=== PATIENT | female | born 1995 | race Caucasian/White ===

== ENCOUNTER 2019-06-01 09:47 | Day surgery (SDC) | payer BC ==
[~2019-06-01] VITALS: Ht 154.9 cm; Wt 104.5 kg
[2019-06-01] VITALS (8 sets, daily range): BP systolic 115–132; BP diastolic 59–74; PULSE 59–80; TEMP 97.5–98.2
--- NOTE | 2019-06-01 15:10 | NUR ---
Returns to room 5 per cart from PACU accompanied by Taina NELSON and is awake and alert. IV fluids infusing and site is free of redness. Siderails up x2 and call light in reach. Patient is taking sips of water. Noted bloody drainage on the linda wrap dressing over the left breast area and drainage marked. Will continue to monitor. Family in room and patient allowed to rest.
--- NOTE | 2019-06-01 15:25 | NUR ---
Resting when not disturbed. Slight increase in bloody drainage over the left breast linda wrap dressing.
--- NOTE | 2019-06-01 15:30 | NUR ---
Office called and Dr. Winn informed of bloody drainage noted on dressing. Order received to reinforce with ABD and apply linda wrap. Patient is sipping on water. Family in room.
--- NOTE | 2019-06-01 15:45 | NUR ---
Dressing reinforced with ABD and linda wrap as ordered. Patient is sipping on Sprite and eating applesauce.
--- NOTE | 2019-06-01 16:00 | NUR ---
Eating applesauce and sipping on Sprite. Family at bedside.
--- NOTE | 2019-06-01 16:15 | NUR ---
IV to INT and assisted up to the bathroom. Voids and returns to room. Dressing remains dry and Dr. Winn notified. Patient maybe discharged to home and will follow up in the office on 06/02/2019 at 0900 as scheduled preoperatively.
--- NOTE | 2019-06-01 16:30 | NUR ---
Complains of nausea when attempting to dress self and Zofran 4mg IV given. Patient resting on cart and will continue to monitor. No emesis.
--- NOTE | 2019-06-01 16:45 | NUR ---
States that she is feeling better and wants to go home. IV discontinued and site is free of redness. Given dismissal instructions and signed.
--- NOTE | 2019-06-01 16:55 | NUR ---
Patient dismissed to home per private vehicle driven by family and taken to the front door per wheelchair with instructions in hand. Provided script for [place]
== END 2019-06-01 16:55 | disposition home or self-care (01) ==
LOC: SDCO 09:47
DX: N62 Hypertrophy of breast (principal); N64.89 Other specified disorders of breast; Z91.040 Latex allergy status; Z90.710 Acquired absence of both cervix and uterus; Z87.891 Personal history of nicotine dependence
CPT/HCPCS: J0171; J0690; J1100; J1170; J2250; J2550; J2704; J2710; J2795; J3010; J7040; J7120

== ENCOUNTER 2019-06-01 19:47 | Observation (INO) | payer BC ==
[~2019-06-01] VITALS: Ht 154.9 cm; Wt 105.0 kg
[2019-06-01 21:08] LABS: HEMATOCRIT 38.2 % (37.0-47.0); HEMOGLOBIN 13.1 g/dl (12.5-16.0); MEAN CELL VOLUME 83 fl (80.0-100.0); MEAN CORPUSCULAR HEMOGLOBIN 29 pg (27.0-31.0); MEAN CORPUSCULAR HGB CONC 34 g/dl (33.0-37.0); MEAN PLATELET VOLUME 11.2 fl (7.4-10.4); PLATELET COUNT 147 K/mm3 (130-400); RED BLOOD COUNT 4.58 M/mm3 (4.10-5.30); REDCELL DISTRIBUTION WIDTH-CV 12.2 % (11.5-14.5)
[2019-06-01 21:11] LABS: INR 1.1 (0.8-3.0); PROTHROMBIN TIME 12.3 SECONDS (9.7-12.8)
[2019-06-01 21:18] LABS: ALBUMIN 3.6 gm/dL (3.5-5.0); BILIRUBIN,TOTAL 0.4 mg/dL (0.0-1.0); CALCIUM 8.6 mg/dL (8.4-10.2); CREATININE, serum 0.69 (0.52-1.25); POTASSIUM 4.6 mmol/L (3.4-5.0); TOTAL PROTEIN 6.1 gm/dL (6.4-8.2)
[2019-06-01 21:30] LABS: BAND 3 % (0-10); LYMPHOCYTE 4 % (20.0-51.0); NEUTROPHILS 93 % (42.0-75.2); PLATELET ESTIMATE NORMAL (NORMAL)
[2019-06-02] VITALS (9 sets, daily range): BP systolic 116–149; BP diastolic 52–72; PULSE 64–92; TEMP 98–98.5
--- NOTE | 2019-06-02 01:10 | NUR ---
Received from PACU via bed. Oriented to room/policy. Assessment complete. VS stable. Dressing to chest CDI-linda bandages/bulky white. Bruising noted to left chest/axilla area. Post op vitals initiated. NS@125mls/hr. Tolerating ice chips-clear liquid diet provided. Denies needs. Call light in reach. will monitor.
--- NOTE | 2019-06-02 01:25 | NUR ---
Called with c/o nausea. Has not eaten any of the clear liquids as of yet. Zofran given per dr sosa. Will monitor.
--- NOTE | 2019-06-02 01:45 | NUR ---
Up to bathroom at this time-standby assist-voided without difficulty 600mls of clear yellow urine.
--- NOTE | 2019-06-02 02:00 | NUR ---
Called requesting sandwich box. Has tolerated clear liquids with out issue. [place] box provided. Rating pain 6/10 on pain scale-discussed pain med options and has decided to wait until after she eats and will call for pain meds after. Will monitor.
--- NOTE | 2019-06-02 02:20 | NUR ---
Called requesting pain meds. Tolerated [place] diet without nausea. [place] one tab given per dr order. Rating pain 8/10 on pain scale-described as heavy constant ache/pressure.
--- NOTE | 2019-06-02 03:30 | NUR ---
Up to bathroom at this time. Voided 600mls without difficulty
--- NOTE | 2019-06-02 06:00 | NUR ---
Rested well through the night. Tolerating PO. Dressing remained C/D/I. Received [place] one tab x1 with adequate pain control. Voiding without difficulty. Call light in reach.
--- NOTE | 2019-06-02 09:12 | NUR ---
Dr Winn here to see patient.
--- NOTE | 2019-06-02 09:45 | NUR ---
Patient alert and oriented, answers questions appropriately. See assessment. Incisions to breast with edges well approximated, no redness or drainage noted. Bruising noted to left breast. No c/o pain or discomfort.
--- NOTE | 2019-06-02 11:57 | NUR ---
Discharge instructions reviewed with patient and spouse, verbalized understanding. Discharged ambulatory to auto/home with spouse at 1155.
--- NOTE | 2019-06-02 12:35 | NUR ---
Initial visit; Patient thanked [employer]ly[employer] Needle Operator for stopping by to wish her well and offer God's blessings.
== END 2019-06-02 10:20 | disposition home or self-care (01) ==
LOC: COL.ER 19:47 → SDCO 06-02 00:52 → SURG 06-02 00:57 → SDCO 06-02 08:00 → SURG 06-02 08:10
PROVIDERS: Emergency Medicine; ADMIT Plastic Surgery
DX: N64.89 Other specified disorders of breast (principal); Z91.040 Latex allergy status; Z90.710 Acquired absence of both cervix and uterus; Z87.891 Personal history of nicotine dependence
CPT/HCPCS: G0378; G0379; J0330; J0690; J2405; J2704; J3010; J7030; J7120